=== PATIENT | male | born 1945 | race Caucasian/White ===

== ENCOUNTER → 2018-04-26 15:58 | Outpatient (CLI) | payer SELFPAY | PROVIDERS: Family Provider Family Medicine; PCP Family Medicine; Visit Provider Otolaryngology | DX: J32.9 Chronic sinusitis, unspecified (principal) | CPT/HCPCS: 87070; 87077; 87186; 87205 ==

== ENCOUNTER → 2022-04-29 | Outpatient (CLI) | payer SELFPAY ==
--- NOTE | 2022-04-29 | IMM_PTH ---
PATIENT: MACRINA MONTANEZ LOC: [facility] U#:[id number] AGE/SX: 77/M ROOM: RE04/29/[address]: Dr. Jimbo Lawton MD : 1945 BED: DIS: 04/29/2022 SPEC #: [id number] RECD: 05/04/22 13:09 STATUS: JESSA REQ #: [id number] ASHER: 04/29/22 00:[address]: Jimbo Lawton DEPT: IMMUNOHISTOCHEMISTRY RECD BY: Dee Martinez ENTERED: 05/04/22 13:10 SP TYPE: IMMUNO OTHR DR: Dr. Maico Nino, Tissues: B - PROSTATE RIGHT C - PROSTATE RIGHT Procedures: 34BE12 (add) P40 (add) 34BE12 (initial) PHYSICIAN & INSTITUTION [place] [id number] SPECIMEN INFORMATION: Tissue Source: B - Right prostate, mid, core biopsy, C - Right prostate, base, core biopsy Clinical Info: Elevated PSA Specimen Number: [id number] B & C CPT code: 88356, 39415 x3 METHODOLOGY: Deparaffinized sections of prefer/formalin-fixed tissue or PAP/DQ stained slides are incubated with monoclonal/polyclonal antibodies/oligonucleotide probes. Localization is made via biotin free immunoperoxidase method. Appropriate controls are performed and reacted as expected. Results on target cell population are indicated in the following table: RESULTS: ANTIBODY / CLONE RESULT Block B P40 (BC28) negative 34BE12 (34BE12) negative Block C P40 (BC28) negative 34BE12 (34BE12) negative These tests were developed and their performance characteristics determined by [facility]. They may not have been cleared or approved by the U.S. Food and Drug Administration. The FDA has determined that such clearance or approval is not necessary. The above immunohistochemical/dualISH markers are ordered and reviewed by the Pathologist. INTERPRETATION: B. Right prostate, mid, core biopsy: Adenocarcinoma. C. Right prostate, base, core biopsy: Adenocarcinoma. SJ:bryant 05/05/2022
--- NOTE | 2022-04-29 08:00 | PROSBIL_PTH ---
PATIENT: MACRINA MONTANEZ LOC: [facility] U#:[id number] AGE/SX: 77/M ROOM: RE04/29/[address]: Dr. Jimbo Lawton MD : 1945 BED: DIS: 04/29/2022 SPEC #: [id number] RECD: 04/29/22 16:06 STATUS: JESSA REDianne #: [id number] ASHER: 04/29/22 08:[address]: Jimbo Lawton DEPT: SURGICAL PATHOLOGY RECD BY: Pawel Luna ENTERED: 04/30/22 09:03 SP TYPE: PROST BX JAMEY DR: Dr. Maico Nino DO Tissues: A - PROSTATE RIGHT B - PROSTATE RIGHT C - PROSTATE RIGHT D - PROSTATE LEFT E - PROSTATE LEFT F - PROSTATE LEFT Procedures: PROSTATE BX HEADER OPERATION: Prostate biopsy PRE-OP DIAGNOSIS: R97.20 TISSUE SUBMITTED: A - Right apex, B - Right mid, C - Right base, D - Left apex, E - Left mid, F - Left base MICROSCOPIC DIAGNOSIS A. Right prostate, apex, core biopsy: Focal high-grade prostatic intraepithelial neoplasia (HGPIN). B. Right prostate, mid, core biopsy: Prostatic adenocarcinoma. Howie grade: 3+3=6 Number of cores involved: 1/1 Proportion of tissue involved: ~5% Perineural invasion: present.. Greatest tumor length: 0.1 cm See comment. C. Right prostate, base, core biopsy: Prostatic adenocarcinoma. Rillito grade: 3+3=6 Number of cores involved: 1/1 Proportion of tissue involved: ~10% Perineural invasion: Present. Greatest tumor length: ~0.2 cm Chronic inflammation. See comment. D. Left prostate, apex, core biopsy: Prostatic tissue, negative for malignancy. E. Left prostate, mid, core biopsy: Prostatic adenocarcinoma. Rillito grade: 3+4=7 Number of cores involved: 1/1 Proportion of tissue involved: ~50% Perineural invasion: Present. Greatest tumor length: 0.6 cm Chronic inflammation. F. Left prostate, base, core biopsy: Prostatic adenocarcinoma. Howie grade: 3+3=6 Number of cores involved: 1/1 Proportion of tissue involved: 75% Perineural invasion: Present. Greatest tumor length: 1 cm, discontinuous SJ:bryant 05/04/2022 COMMENT B & C. Immunohistochemistry ([id number]) supports the above diagnosis. Case has been reviewed in consultation with Dr. Monroe who concurs with the above diagnosis. IDC:AM MICROSCOPIC DESCRIPTION Slides are reviewed. GROSS DESCRIPTION A - Received is one container designated prostate, right apex. The specimen consists of one elongated fragment of light carrillo-white soft tissue measuring 1 cm in length and 0.1 cm in diameter. The specimen is totally submitted in one cassette. B - Received is one container designated prostate, right mid. The specimen consists of one elongated fragment of light carrillo-white soft tissue measuring 1.4 cm in length and 0.1 cm in diameter. The specimen is totally submitted in one cassette. C - Received is one container designated prostate, right base. The specimen consists of one elongated fragment of light carrillo-white soft tissue measuring 1 cm in length and 0.1 cm in diameter. The specimen is totally submitted in one cassette. D - Received is one container designated prostate, left apex. The specimen consists of one elongated fragment of light carrillo-white soft tissue measuring 1 cm in length and 0.1 cm in diameter. The specimen is totally submitted in one cassette. E - Received is one container designated prostate, left mid. The specimen consists of one elongated fragment of light carrillo-white soft tissue measuring 1.5 cm in length and 0.1 cm in diameter. The specimen is totally submitted in one cassette. F - Received is one container designated prostate, left base. The specimen consists of one elongated fragment of light carrillo-white soft tissue measuring 1.3 cm in length and 0.1 cm in diameter. The specimen is totally submitted in one cassette. / SJ:rg 04/30/2022 TC:0 [facility]: [id number]
== END | disposition home or self-care (01) ==
PROVIDERS: PCP Family Medicine; Visit Provider Urology
DX: R97.20 Elevated prostate specific antigen [PSA] (principal)
CPT/HCPCS: 88305; 88341; 88342; G0416

== ENCOUNTER → 2022-05-19 | Outpatient (CLI) | payer SELFPAY ==
--- NOTE | 2022-05-19 15:45 | PET_ITS ---
PROCEDURE: WHOLE BODY PET/CT (PMSA) SCAN, SKULL VERTEX TO MID THIGH REASON FOR EXAM: Adenocarcinoma of the prostate gland, initial staging COMPARISON EXAMINATION: None. TECHNIQUE: Following the intravenous administration of 9.82 mCi of F-18 pylarify, multiplanar imaging acquisitions of the neck, chest, abdomen/pelvis to the mid thigh, obtained at 1 hour post radiopharmaceutical administration. Interpretation is with co-registeration of similar anatomic distribution of CT. Findings: Normal and physiologic distribution of radioisotope identified in the expected intensity of the hepatic and splenic parenchyma, urinary tract and gastrointestinal structures. There is gross anatomic distribution of the intracranial contents. Physiologic activity of the salivary glands INDEX LESION SIZE SUV INTERPRETATION: 1. 1.2 cm focal isotope activity of the posterior prostate gland with elevated SUV (11.5). CT portion of the exam: The lungs are normal. There is no demonstrated pleural abnormality. Normal heart and pericardium. There are calcifications of the coronary arteries. Normal mediastinum. Normal hilar regions. Normal unenhanced pulmonary arteries. There is atherosclerotic calcification of the aortic arch with tortuosity and elongation of the aortic arch and descending thoracic aorta. Normal liver. Normal gallbladder and extrahepatic biliary system. Normal spleen. Normal pancreas. Normal bilateral adrenal glands. Right renal cysts. No hydronephrosis. No urinary tract calcifications. Normal visualized stomach. Normal small intestine. Normal colon. The appendix is visualized and appears normal. There is diffuse atherosclerotic calcification of the abdominal aorta with elongation and tortuosity, but without a demonstrated aneurysm. Normal inferior vena cava. Normal urinary bladder. Bilateral fat-containing inguinal hernias. No lytic or sclerotic bone lesions. Degenerative changes of the spine. PET/PET/CT Tumor Base -Thigh Init IMPRESSION: 1. ABNORMAL EXAMINATION. Focal activity of the posterior prostate gland compatible with prostate neoplasm. No demonstrated metastasis. 2. Chronic changes, as detailed above. Electronically Signed: Nabeel Bosch MD ([place]) at 12:44 EDT ,
== END | disposition home or self-care (01) ==
PROVIDERS: PCP Family Medicine; Referring Provider Urology; Visit Provider Urology
DX: C61 Malignant neoplasm of prostate (principal)
CPT/HCPCS: 78815; A9595

== ENCOUNTER 2022-08-27 09:44 | Day surgery (SDC) | payer SELFPAY ==
[2022-08-27 10:23] VITALS: BP 148/89; PULSE 70; RESP 16; TEMP 36.6; O2SAT 94; BMI 27.1
[2022-08-27] MEDS: Cefazolin 2 GM in 0.9% Normal Saline 100 ML IV (12:20)
--- NOTE | 2022-08-27 12:24 | PCM.HP.STD ---
HPI - General HPI Narrative MACRINA MONTANEZ, is a 77 M who presents for placement of gold markers and spacer organ at risk gel matrix he has prostate cancer and undergoing radiation therapy. [facility] Medical History Abnormal pathology report from prostate needle biopsy Abnormal TRUS (transrectal ultrasound), prostate Arthritis BPH (benign prostatic hyperplasia) Bronchitis High cholesterol Malignant neoplasm prostate Migraine Nocturia Non-smoker PSA elevation Urinary calculus Wears glasses Home Medications cholecalciferol (vitamin D3) 125 mcg (5,000 unit) capsule 125 mcg PO DAILY 06/01/22 [History Last Taken Unknown] coenzyme Q10 30 mg capsule (Co Q-10) 30 mg PO DAILY 06/01/22 [History Last Taken Unknown] red yeast rice 600 mg capsule 600 mg PO DAILY 06/01/22 [History Last Taken Unknown] zinc acetate 50 mg (zinc) capsule (Galzin) 50 mg PO DAILY 06/08/22 [History Last Taken Unknown] saw palm 160 mg-vit E 100 unit-selen 100 fgc-qqwu-mbcvzm-pygeum tablet ([employer]) 1 tab PO DAILY 08/19/22 [History Last Taken Unknown] ciprofloxacin HCl 500 mg tablet (Cipro) 500 mg PO BID #10 tabs 08/27/22 [Rx Last Taken Unknown] Allergy/AdvReac Type Severity Reaction Status Date / Time No Known Allergies Allergy Verified 08/27/22 10:22 Family History (Updated 06/08/22 @ 15:07 by Jenniffer Cintron) Brother Heart disease Cancer prostate Sister Breast cancer Mother Heart disease Surgical History Hx of foot surgery Social History (Updated 06/01/22 @ 11:28 by Jenniffer Cintron) Smoking Status: Never smoker alcohol intake: never substance use type: does not use caffeine: Yes (3) Vital Signs Vital Signs Vital Signs: 08/27/22 10:23 08/27/22 10:23 Temperature 97.9 F Temperature Source Temporal Pulse Rate 70 Respiratory Rate 16 Respiratory Pattern Normal Blood Pressure 148/89 H Blood Pressure Mean 108 Blood Pressure Source Monitor Blood Pressure Position Right Lateral Blood Pressure Location Right Arm Pulse Ox 94 Oxygen Delivery Method Room Air Weight Weight: 78.4 kg Body Mass Index (BMI) 27.1
--- NOTE | 2022-08-27 12:25 | DCINST_ITS ---
Discharge Instructions Diet Discharge Diet: No restrictions, Light diet - advance as tolerated and Soft diet Dressing / Incision Call your doctor if your incision/area has: Continuous Slow Oozing Follow Up Care Please Follow Up With: Jimbo Lawton MD When: Follow-up in September for your next hormone deprivation shot Test Results: Test results from this visit will be discussed in further detail at your follow- up appointment, if applicable. Discharge Plan Admission Primary Reason for Your Visit: placement of gold markers and spacer gel Attending Provider: Jimbo Lawton Primary Care Provider: Tal Bear Discharge Orders/Prescriptions Prescriptions: New ciprofloxacin HCl [Cipro] 500 mg tablet 500 mg PO BID Qty: 10 0RF Continued Galzin 50 mg (zinc) capsule 50 mg PO DAILY coenzyme Q10 [Co Q-10] 30 mg capsule 30 mg PO DAILY red yeast rice 600 mg capsule 600 mg PO DAILY Rx Instructions: give with meal/snack cholecalciferol (vitamin D3) 125 mcg (5,000 unit) capsule 125 mcg PO DAILY Prostate Health 160-100-100 mg-unit-mcg Tablet 1 tab PO DAILY Referrals / Follow Up: Tal Bear DO [Primary Care Provider] - Disposition Disposition (needs filled in before D/C Order can be placed): Home, Self Care
--- NOTE | 2022-08-27 12:26 | OP.PCM_ITS ---
Report of Operation Date of Procedure: 08/27/22 Pre-Operative Diagnosis: Prostate cancer Post-Operative Diagnosis: Same Surgery/Procedure Performed:: Placement of gold markers and spacer at risk gel matrix Description of Surgical Findings:: In the preoperative area I reviewed with the patient how the procedure is done we talked about the risk of the procedure including the risk of infection, bleeding, migration of the spacer gel, the patient is planning to have radiation to the prostate he understands that the spacer gel has demonstrated benefit in reducing the risk of toxicity from the ration radiation to the rectum but there is no guarantees that this spacer gel will prevent any serious complications or toxicity to the rectum or bowels. After reviewing this with the patient and his family organ to proceed with placement of a spacer gel matrix. The penis and testicles were prepped and draped in usual sterile fashion, ultrasound probe was placed into the rectum and biplanar ultrasound was performed on the prostate. Identified the base mid and apex of the prostate identified the transition zone prostate. Then using a needle the first forensic anthropologist was placed into the right base of the prostate, the second forensic anthropologist was placed in the left base of the prostate, and the third core marker was placed in the right apex of the prostate after all 3 markers were placed the placement of the markers were confirmed by ultrasonography. The genitals and perineum were prepped and draped in usual sterile fashion. I then introduced a biplanar ultrasound probe into the rectum and performed ultrasonography and identified the Denonvilliers' fascia the prostate mid base and apex and seminal vesicles. The spacer gel mix was then prepared on the back table per manufactures instruction. Under ultrasound guidance in the midline perineum a bevel needle down we advanced through the perineum below the prostate into the space of Denonvilliers' fascia. This space which could be identified by ultrasound with a bright white layer between the prostate and the rectum. I then injected a puff of normal saline to identify the space further. After I confirmed that the needle was in the correct space in the mid prostate and the s pace of Denonvilliers' fascia between the rectum and the prostate. Then over the course of 15 seconds the gel matrix was injected slowly there was nice separation between the prostate and the rectum at the gel matrix was injected. The position of the gel matrix was confirmed by ultrasound. Then the injection needle was removed intact. Patient's perineum was cleaned patient was taken out of stirrups and then taken back to the PACU in good condition. Surgeon: Jimbo Lawton Type of Anesthesia: General Admit VTE Documentation VTE Present on Admission: No VTE Mechan Device Prophylaxis: SCD's VTE Pharm Prophylaxis ordered?: No
[2022-08-27 12:49] VITALS: BP 143/86; BP 148/89; PULSE 86; RESP 17; TEMP 36.3; O2SAT 94
[2022-08-27 13:15] VITALS: BP 143/91; BP 148/89; PULSE 70; RESP 15; O2SAT 95
[2022-08-27 13:27] VITALS: BP 148/89; BP 151/92; PULSE 73; RESP 16; TEMP 36.3; O2SAT 96
[2022-08-27 13:55] VITALS: BP 148/89
== END 2022-08-27 14:26 | disposition home or self-care (01) ==
LOC: SDC 09:51 → AC 09:52
PROVIDERS: PCP Family Medicine; Referring Provider Urology; Visit Provider Urology
PROC: (CPT 55874; principal; 2022-08-27 11:45)
DX: C61 Malignant neoplasm of prostate (principal); R97.20 Elevated prostate specific antigen [PSA]
CPT/HCPCS: 55876; 55874; 00902; J7120

== ENCOUNTER → 2022-09-02 | Outpatient (CLI) | payer SELFPAY ==
--- NOTE | 2022-09-02 10:46 | MRI_ITS ---
STUDY: MR PELVIS WITH T WITHOUT CONTRAST REASON FOR EXAM: Male, 77 years old. s/p spaceoar and fiducials, planning for XRT -- please eval for disease extent TECHNIQUE: Standardized fat and water weighted pulse sequences were obtained in all 3 orthogonal planes, pre-and post contrast administration. 15 ML IV CLARISCAN was administered for the contrast portion of the examination. COMPARISON: None. FINDINGS: Normal urinary bladder. Normal visualized small intestine. Normal visualized colon. Bilateral fat-containing inguinal hernias. There is no pelvic fluid. There is no pelvic mass lesion or lymphadenopathy. Normal visualized pelvic arteries. No bone marrow edema. Normal abdominal wall. There are focal areas of signal dropout within the prostate gland correlating to fiducial markers/implants, as evident on CT 09/02/2022. On T1 imaging, there is high signal intensity within the peripheral zone and central left transitional zone, likely representing blood products, perhaps from recent procedure/biopsy. MRI/Pelvis W/WO Contrast IMPRESSION: 1. No pelvic or periprostatic adenopathy/mass. 2. Postprocedural changes of the prostate gland. Electronically Signed: Nabeel Bosch (Brooks), at 15:34 EDT ,
--- NOTE | 2022-09-02 11:57 | RAD_ITS ---
STUDY: X-RAY - ORBITS REASON FOR EXAM: Male, 77 years old. Evaluation prior to MRI study. TECHNIQUE: 2 view(s) of the orbits were obtained. COMPARISON: None. FINDINGS: Normal bilateral orbits without a metallic orbital foreign body. Normal visualized facial bones. Normal paranasal sinuses. The soft tissue structures are unremarkable. RAD/Orbits for Foreign Body IMPRESSION: No demonstrated metallic orbital foreign body. Patient is cleared for an MRI examination. Electronically Signed: Bhargav Tejada, at 12:41 EDT ,
[2022-09-02 12:31] LABS: CREATININE FINGERSTICK < 0.9 mg/dL (0.70-1.30); EGFR FINGERSTICK > 60.0000 mL/min (>60)
== END | disposition home or self-care (01) ==
LOC: MRI 10:46
PROVIDERS: PCP Family Medicine; Visit Provider Student in an Organized Health Care Education/Training Program
DX: C61 Malignant neoplasm of prostate (principal)
CPT/HCPCS: 70030; 72197; A9575

== ENCOUNTER 2022-09-28 14:32 | Emergency (ER) | payer OTHER, SELFPAY ==
[2022-09-28] VITALS (8 sets, daily range): BP systolic 98–121; BP diastolic 70–89; PULSE 72–147; RESP 12–21; TEMP 35.6; O2SAT 96–98; BMI 27.7
--- NOTE | 2022-09-28 14:35 | NURSING ---
NO OLD EKGS
--- NOTE | 2022-09-28 14:56 | ED.VIS.CHEST ---
HPI History of Present Illness Chief Complaint: Chest Pain Informant: patient Narrative Narrative: Patient is a 77-year-old male with history of prostate cancer (currently on radiation therapy) presenting with chest pain and palpitations. He states it started around noon today. Patient is 10th radiation session this morning and states he felt fine up until around noon. He then felt severe chest pain and he felt like his heart was throbbing. He went and tried to lay down and felt like some of his symptoms calm down. He then had a sensation of about every fourth heartbeat he would get discomfort in his neck. That has resolved. Patient currently denies any significant cardiac symptoms but still feels a little off. He did take an Aleve prior to arrival. Denies any swelling of his legs. Denies a history of DVT or PE. Denies a history of diabetes or hypertension. No other complaints at this time. Has never had a thing like this before. Denies any history of atrial fibrillation. [facility] Medical History Abnormal pathology report from prostate needle biopsy Abnormal TRUS (transrectal ultrasound), prostate Arthritis BPH (benign prostatic hyperplasia) Bronchitis High cholesterol Malignant neoplasm prostate Migraine Nocturia Non-smoker PSA elevation Urinary calculus Wears glasses Home Medications cholecalciferol (vitamin D3) 125 mcg (5,000 unit) capsule 125 mcg PO DAILY supplement 06/01/22 [History Last Taken 09/28/22] coenzyme Q10 30 mg capsule (Co Q-10) 30 mg PO DAILY supplement 06/01/22 [History Last Taken 09/26/22] red yeast rice 600 mg capsule 600 mg PO DAILY supplement 06/01/22 [History Last Taken 09/27/22] zinc acetate 50 mg (zinc) capsule (Galzin) 50 mg PO DAILY supplement 06/08/22 [History Last Taken 09/28/22] saw palm 160 mg-vit E 100 unit-selen 100 [id number]-jmnifz-pygeum tablet (Prostate 2CRisk) 1 tab PO 1200 supplement 08/19/22 [History Last Taken 09/27/22] apixaban 5 mg tablet (Eliquis) 5 mg PO BID #60 tabs 09/28/22 [Rx Last Taken Unknown] diltiazem HCl 120 mg capsule,extended release 24 hr 120 mg PO DAILY #30 caps 09/28/22 [Rx Last Taken Unknown] Allergy/AdvReac Type Severity Reaction Status Date / Time No Known Allergies Allergy Verified 09/28/22 14:36 Family History Brother Heart disease Cancer prostate Sister Breast cancer Mother Heart disease Surgical History Hx of foot surgery Social History Smoking Status: Never smoker alcohol intake: never substance use type: does not use caffeine: Yes (3) ROS ROS ED Constitutional Constitutional ED: Denies chills or fever(s) Eyes Eyes: Denies blurry vision ENT ENT ED: Denies ear pain or sore throat Cardiovascular Cardiovascular: Reports as per HPI, chest pain and palpitations Respiratory/Chest Respiratory/Chest: Denies cough or dyspnea Gastrointestinal Gastrointestinal: Denies abdominal pain, nausea or vomiting Genitourinary Genitourinary ED: Denies dysuria or hematuria Musculoskeletal Musculoskeletal: Denies arthralgias or myalgias Integumentary Denies rash Neurologic Neurologic: Denies headache(s) or weakness Psychiatric Psychiatric: Denies anxiety Hematologic/Lymphatic Hematologic/Lymphatic: Denies easy bleeding or easy bruising EXAM Physical Exam Const Vital Signs: 09/28/22 14:33 09/28/22 14:40 09/28/22 15:15 Temperature 96.0 F L Temperature Source Temporal Pulse Rate 147 H 147 H Pulse Rate [Lying] Pulse Rate [Sitting (for 1 minute prior to obtaining)] Pulse Rate [Standing (for 1 minute prior to obtaining)] Respiratory Rate 21 H Respiratory Effort Normal Respiratory Pattern Normal Blood Pressure 107/89 H Blood Pressure [Lying] Blood Pressure [Sitting (for 1 minute prior to obtaining)] Blood Pressure [Standing (for 1 minute prior to obtaining)] Blood Pressure Mean 95 Blood Pressure Mean [Lying] Blood Pressure Mean [Sitting (for 1 minute prior to obtaining)] Blood Pressure Mean [Standing (for 1 minute prior to obtaining)] Pulse Ox 96 Oxygen Delivery Method Room Air 09/28/22 16:00 09/28/22 17:00 09/28/22 17:56 Temperature Temperature Source Pulse Rate 99 101 H Pulse Rate [Lying] 98 Pulse Rate [Sitting (for 1 minute prior to obtaining)] 104 H Pulse Rate [Standing (for 1 minute prior to obtaining)] 146 H Respiratory Rate 16 16 Respiratory Effort Respiratory Pattern Blood Pressure 111/77 105/70 Blood Pressure [Lying] 111/80 Blood Pressure [Sitting (for 1 minute prior to obtaining)] 121/74 H Blood Pressure [Standing (for 1 minute prior to obtaining)] 98/84 H Blood Pressure Mean 88 81 Blood Pressure Mean [Lying] 90 Blood Pressure Mean [Sitting (for 1 minute prior to obtaining)] 89 Blood Pressure Mean [Standing (for 1 minute prior to obtaining)] 88 Pulse Ox 98 97 Oxygen Delivery Method Room Air Room Air 09/28/22 18:00 09/28/22 19:04 Temperature Temperature Source Pulse Rate 112 H 81 Pulse Rate [Lying] Pulse Rate [Sitting (for 1 minute prior to obtaining)] Pulse Rate [Standing (for 1 minute prior to obtaining)] Respiratory Rate 12 16 Respiratory Effort Respiratory Pattern Blood Pressure 112/78 120/82 H Blood Pressure [Lying] Blood Pressure [Sitting (for 1 minute prior to obtaining)] Blood Pressure [Standing (for 1 minute prior to obtaining)] Blood Pressure Mean 89 94 Blood Pressure Mean [Lying] Blood Pressure Mean [Sitting (for 1 minute prior to obtaining)] Blood Pressure Mean [Standing (for 1 minute prior to obtaining)] Pulse Ox 97 96 Oxygen Delivery Method Room Air Positive well nourished and well developed General Appearance ED: well developed and NAD HEENT Reports moist mucous membranes normocephalic and atraumatic Eyes PERRL and EOMs intact bilaterally Neck supple and no JVD Chest Wall inspection of chest normal and palpation of chest normal Resp normal respiratory effort and clear to auscultation bilaterally Cardio no murmurs; Negative for regular rate or regular rhythm Rate: tachycardic Rhythm: abnormal rhythm irregularly irregular Peripheral Pulses: pulses 2+ throughout GI normal to inspection, nondistended, normoactive bowel sounds Back/Spine no CVA tenderness Extremity normal to inspection General Extremety ED: Negative for edema General Extremity: Negative for edema Neuro oriented x3 and CN's II-XII intact bilaterally Sensorium / Orientation: awake and alert Psych mental status grossly normal Skin no rashes or lesions noted MDM MDM MDM Narrative Medical decision making narrative: Patient evaluated for sudden onset of chest pain and discomfort. On upon arrival patient has soft but normal blood pressures and is in atrial fibrillation with RVR. He actually states he is feeling better. He is given 10 mg of IV diltiazem with improvement of his rate. He is given 30 mg of oral diltiazem. Given his history of cancer I did obtain a CTA to rule out pulmonary emboli as a cause of his A. fib. In addition TSH and troponins are normal. High sensitive troponin checked x2 and went from 12 to 37. I suspect this is more strain related to his right. Repeat EKG is completely normal. He is asymptomatic and spontaneously converts back to normal sinus rhythm. Spoke with cardiology on-call who is comfortable starting him on Eliquis and 120 mg daily Cardizem. Patient's [id number] 2 score is 2. Patient is agreeable this plan of care. Patient will need outpatient cardiac work-up including echocardiogram. He is aware of this. Is found to have some coronary artery disease on CT and is informed of this. Patient is given strict return precautions. Patient counseled on the risk of bleeding associated with anticoagulation. He is counseled to not use any NSAIDs. Patient discharged home in stable condition. Patient and family agreeable with plan of care. Lab Data Labs: Laboratory Results - last 24 hr 09/28/22 09/28/22 09/28/22 14:45 14:45 14:45 WBC 4.4 RBC 4.79 Hgb 14.7 Hct 45.2 MCV 94.4 H MCH 30.7 MCHC 32.5 RDW Std Deviation 47.1 H RDW Coeff of Koko 13.7 Plt Count 122 L MPV 10.3 Immature Gran % (Auto) 0.200 Neut % (Auto) 66.7 Lymph % (Auto) 18.2 L Dodge % (Auto) 11.3 H Eos % (Auto) 3.4 Baso % (Auto) 0.2 Absolute Neuts (auto) 3.0 Absolute Lymphs (auto) 0.81 L Nucleated RBC % 0 Sodium Cancelled Potassium Cancelled Chloride Cancelled Carbon Dioxide Cancelled Anion Gap Cancelled BUN Cancelled Creatinine Cancelled Estim Creat Clear Calc Cancelled Est GFR (MDRD) Af Amer Cancelled Est GFR (MDRD) Non-Af Cancelled BUN/Creatinine Ratio Cancelled Glucose Cancelled Calcium Cancelled Total Bilirubin Cancelled AST Cancelled ALT Cancelled Alkaline Phosphatase Cancelled Troponin I High Sens Cancelled B-Natriuretic Peptide 43.3 Total Protein Cancelled Albumin Cancelled Globulin Cancelled Albumin/Globulin Ratio Cancelled TSH Cancelled Urine Color Urine Clarity Urine pH Ur Specific [place] Urine Protein Urine Glucose (UA) Urine Ketones Urine Occult Blood Urine Nitrite Urine Bilirubin Urine Urobilinogen Ur Leukocyte Esterase Urine RBC Urine WBC Ur Squamous Epith Cells Urine Bacteria Urine Mucus 09/28/22 09/28/22 09/28/22 15:44 15:45 17:47 WBC RBC Hgb Hct MCV MCH MCHC RDW Std Deviation RDW Coeff of Koko Plt Count MPV Immature Gran % (Auto) Neut % (Auto) Lymph % (Auto) Dodge % (Auto) Eos % (Auto) Baso % (Auto) Absolute Neuts (auto) Absolute Lymphs (auto) Nucleated RBC % Sodium 141 Potassium 3.9 Chloride 107 Carbon Dioxide 28.0 Anion Gap 6 BUN 20 H Creatinine 1.01 Estim Creat Clear Calc 59.08 Est GFR (MDRD) Af Amer 92 Est GFR (MDRD) Non-Af 76 BUN/Creatinine Ratio 19.8 Glucose 133 H Calcium 8.7 Total Bilirubin 0.40 AST 43 H ALT 88 H Alkaline Phosphatase 107 Troponin I High Sens 12 37 B-Natriuretic Peptide Total Protein 7.1 Albumin 3.4 Globulin 3.7 Albumin/Globulin Ratio 0.9 TSH 1.83 Urine Color Yellow Urine Clarity Clear Urine pH 6.5 Ur Specific [place] 1.010 Urine Protein Negative Urine Glucose (UA) Normal Urine Ketones Negative Urine Occult Blood 10 H Urine Nitrite Negative Urine Bilirubin Negative Urine Urobilinogen Normal Ur Leukocyte Esterase Negative Urine RBC 0 SEEN Urine WBC 0 SEEN Ur Squamous Epith Cells 0 SEEN Urine Bacteria 0 SEEN Urine Mucus 0 SEEN Radiography Diagnostic Testing: Clinical Impression(s) from Imaging Studies Chest X-Ray 09/28/22 15:18 IMPRESSION: Findings suggestive of linear bibasilar atelectasis. Electronically Signed: Justus Gonsalez MD at 15:39 EST , Chest CTA 09/28/22 16:03 IMPRESSION: ASHD and Minor subsegmental atelectasis in both lower and left upper lobes.. No evidence for pulmonary embolus Electronically Signed: Vineet Klein MD at 16:57 EST Reading Location ID and State: [address] [place] [address] , Service support , Rhythm Strip Rhythm Strip: A-fib Rate: 150 Ectopy: None EKG Initial EKG: Attestation: I personally reviewed and interpreted this EKG as follows: Interpretation: Atrial Fibrillation Comments: Atrial fibrillation with rapid ventricular response at a rate of 150 bpm Normal axis Normal intervals Normal ST segments Follow-up EKG: Attestation: I personally reviewed and interpreted this EKG as follows: Comments: Normal sinus rhythm at a rate of 77 bpm Normal axis Normal intervals Normal ST segments Critical Care Time Critical Care Time: Yes Critical care time (excluding procedures): 30-74 minutes (40), Discussing w/Patient &/or Family/Regulatory Compliance Manager and Discussing w/Consultants Discharge Plan Triage Chief Complaint: Chest Pain ED Provider: Sanam Morales Dx/Rx/DC Orders Clinical Impression: Atrial fibrillation with rapid ventricular response, Chest pain, Heart palpitations Instructions: Apixaban Oral tablet, ED AFIB Prescriptions: New Eliquis 5 mg tablet 5 mg PO BID Qty: 60 0RF diltiazem HCl 120 mg capsule,extended release 24hr 120 mg PO DAILY Qty: 30 0RF No Action Galzin 50 mg (zinc) capsule 50 mg PO DAILY coenzyme Q10 [Co Q-10] 30 mg capsule 30 mg PO DAILY red yeast rice 600 mg capsule 600 mg PO DAILY Rx Instructions: give with meal/snack cholecalciferol (vitamin D3) 125 mcg (5,000 unit) capsule 125 mcg PO DAILY Prostate Health 160-100-100 mg-unit-mcg Tablet 1 tab PO 1200 Primary Care Provider: Tal Bear Referrals: Tal Bear DO [Primary Care Provider] - Malick Diaz MD [Med Staff - Active Staff] - As soon as possible
[2022-09-28] MEDS: 0.9% Normal Saline 1,000 ML 1000 ML IV (15:11)
[2022-09-28] MEDS: dilTIAZem 25 MG/5 ML Vial 10 MG IV BOLUS (15:12)
--- NOTE | 2022-09-28 15:18 | RAD_ITS ---
STUDY: X-RAY CHEST REASON FOR EXAM: Male, 77 years old. Chest pain TECHNIQUE: Single AP portable view of the chest. COMPARISON: None. FINDINGS: EKG electrodes are seen. Increased linear markings are seen at the lung bases slightly more prominent at the right lung base suggestive of bibasilar linear atelectasis. There is no demonstrated pleural abnormality. Normal size heart. Normal mediastinum and leia. Normal visualized pulmonary arteries. There is atherosclerotic tortuosity of the aortic arch and descending thoracic aorta. There are diffuse degenerative changes of the visualized thoracic spine. Normal visualized ribs, clavicles, and shoulders. There is no demonstrated abnormality of the visualized soft tissue structures of the upper abdomen. RAD/Chest 1 View (Portable) IMPRESSION: Findings suggestive of linear bibasilar atelectasis. Electronically Signed: Justus Gonsalez MD at 15:39 EST ,
[2022-09-28 15:20] LABS: Absolute Lymphocyte Count 0.81 X10^3/uL (0.83-4.51); Basophil# 0.01 X10^3/uL; Basophil% 0.2 % (0-1); Eosinophil# 0.15 X10^3/uL; Eosinophils% 3.4 % (0-5); Hematocrit 45.2 % (40-54); Hemoglobin 14.7 g/dL (13.0-16.5); Lymphocyte # 0.81 X10^3/ul (0.83-4.51); Lymphocyte % 18.2 % (19-41); Mean Corp Hgb Conc 32.5 g/dL (32-36); Mean Corpuscular Hgb 30.7 pg (27.0-32.0); Mean Corpuscular Volume 94.4 fL (80-94); Mean Platelet Vol. 10.3 fl (6.2-12.0); Monocyte% 11.3 % (0-10); NRBC Flagged by Analyzer 0 % (0-5); Neutrophil # 2.96 X10^3/uL (2.7-7.7); Neutrophil % 66.7 % (47-70); Platelet Count 122 K/mm3 (150-450); RBC Distribution Width CV 13.7 % (11.6-14.6); RBC Distribution Width SD 47.1 fl (35.1-43.9); Red Blood Count 4.79 M/mm3 (4.6-6.2); White Blood Count 4.4 K/mm3 (4.4-11.0)
--- NOTE | 2022-09-28 15:35 | NURSING ---
GREEN TOP HEMOLIZED. NEEDS REDRAWN
[2022-09-28 15:53] LABS: Bacteria 0 SEEN /hpf (None Seen); Mucous, Urine 0 SEEN /hpf (<or=2+); Red Blood Cells-Urine 0 SEEN /hpf (0-5); Squamous Epithelial Cells - UA 0 SEEN /hpf (0-5); White Blood Cells 0 SEEN /hpf (0-5)
[2022-09-28 16:03] LABS: BNP,B-Type NATRIURETIC PEPTIDE 43.3 pg/mL (0-100)
--- NOTE | 2022-09-28 16:03 | CT_ITS ---
STUDY: CTA CHEST REASON FOR EXAM: Male, 77 years old. new onset A fib, high risk for PE RADIATION DOSAGE (If Supplied By Facility): CTDIvol = ( 16.04 ) mGy, DLP = ( 491.96 ) mGycm TECHNIQUE: The examination was performed with the intravenous administration of IV 75mL Isovue-370. Post-processing of the angiographic images was performed, with multiplanar reformation and 3D reconstruction. Individualized dose optimization techniques were used for this CT. COMPARISON: None. FINDINGS: Normal enhancement of the main pulmonary artery and right and left pulmonary arteries. Normal enhancement of the bilateral peripheral pulmonary arteries. There is no demonstrated pulmonary embolism. Mild atherosclerotic changes of the aorta without evidence for aneurysm.. There is no demonstrated aortic dissection. Heart size is normal. There are tiny foci of coronary artery calcification. Normal mediastinum. Normal hilar regions. Normal visualized trachea and bronchi. The lungs are well expanded. Mild subsegmental atelectasis in both lower and upper lobes Normal pleura. Normal chest wall structures. Dorsal spine demonstrates degenerative change Normal visualized upper abdomen. CT/CTA Chest W/WO Contrast IMPRESSION: ASHD and Minor subsegmental atelectasis in both lower and left upper lobes.. No evidence for pulmonary embolus Electronically Signed: Vineet Klein MD at 16:57 EST ,
[2022-09-28 16:04] LABS: Color, Urine Yellow (Yellow); Glucose, Dipstick Normal (Normal); Ketone-Dipstick Negative (Negative); Leukocyte Esterase-Dipstick Negative /ul (Negative); Nitrite-Dipstick Negative (Negative); Occult Blood-Urine 10 /ul (Negative); Protein-Dipstick Negative (Negative); Urine Bilirubin Dipstick Negative (Negative); Urine Clarity Clear (Clear); Urine Urobilinogen Normal (Normal); Urine pH 6.5 (5.0 - 8.0)
[2022-09-28 16:12] LABS: ALB/GLOB Ratio 0.9 RATIO (0.9-2.4); AST(SGOT) 43 U/L (15-37); Alanine Aminotransfer ALT/SGPT 88 U/L (16-61); Albumin, Serum 3.4 g/dL (3.2-5.0); Alkaline Phosphatase 107 U/L (45-117); Anion Gap 6 (5-15); BUN 20 mg/dL (7-18); BUN/Creat Ratio 19.8 RATIO (10-20); Calcium,Total 8.7 mg/dL (8.5-10.1); Chloride 107 mmol/L (98-107); Creatinine, Serum 1.01 mg/dL (0.70-1.30); EST Glomerular Filtration Rate 76 mL/min (>60); Est Glom Filt Rate - Afr Amer 92 mL/min (>60); Estimated Creatinine Clearance 59.08 ml/min; Globulin 3.7 g/dL (2.2-4.2); Glucose 133 mg/dL (74-106); Potassium 3.9 mmol/L (3.5-5.1); Protein, Total 7.1 g/dL (6.4-8.2); Sodium Level 141 mmol/L (136-145); Thyroid Stim Hormone (TSH) 1.83 uIU/mL (0.358-3.74); Troponin-I HS (w/2H Reflex) 12 pg/mL (3.0-78.0)
[2022-09-28] MEDS: dilTIAZem 30 MG Tablet PO (16:34)
[2022-09-28 17:47] LABS: Reflex Troponin-HS? (from REC) Y
[2022-09-28 18:16] LABS: Troponin-I HS 37 pg/mL (3.0-78.0)
[2022-09-28] MEDS: APIXABAN 5 MG TABLET PO (19:44)
== END 2022-09-28 19:50 | disposition home or self-care (01) ==
PROVIDERS: Emergency Provider Emergency Medicine; PCP Family Medicine; Visit Provider Emergency Medicine
DX: I48.91 Unspecified atrial fibrillation (principal); C61 Malignant neoplasm of prostate; E78.00 Pure hypercholesterolemia, unspecified; I25.10 Atherosclerotic heart disease of native coronary artery without angina pectoris; R00.2 Palpitations; N40.0 Benign prostatic hyperplasia without lower urinary tract symptoms; R07.9 Chest pain, unspecified
CPT/HCPCS: 71045; 71275; 80053; 81001; 83880; 84443; 84484; 85025; 87428; 93005; 96361; 96374; 99285; J7030; Q9967; A4216

== ENCOUNTER → 2023-04-11 | Outpatient (CLI) | payer SELFPAY ==
[2023-04-11 11:52] LABS: PSA,Total- Diagnostic < 0.01 ng/mL (0.0-4.0)
== END | disposition home or self-care (01) ==
PROVIDERS: PCP Family Medicine; Referring Provider Urology; Visit Provider Urology
DX: C61 Malignant neoplasm of prostate (principal)
CPT/HCPCS: 36415; 84153

== ENCOUNTER → 2023-10-07 | Outpatient (CLI) | payer SELFPAY ==
[2023-10-07 12:12] LABS: Absolute Lymphocyte Count 1.12 X10^3/uL (0.83-4.51); Absolute Neutrophil Count 2.6 X10^3/uL (2.0-7.7); Basophil# 0.01 X10^3/uL; Basophil% 0.2 % (0-1); Eosinophil# 0.24 X10^3/uL; Eosinophils% 5.4 % (0-5); Hematocrit 38.7 % (40-54); Hemoglobin 12.7 g/dL (13.0-16.5); Lymphocyte # 1.12 X10^3/ul (0.83-4.51); Lymphocyte % 25.1 % (19-41); Mean Corp Hgb Conc 32.8 g/dL (32-36); Mean Corpuscular Hgb 30.2 pg (27.0-32.0); Mean Corpuscular Volume 91.9 fL (80-94); Monocyte# 0.49 X10^3/uL; NRBC Flagged by Analyzer 0 % (0-5); Neutrophil % 58.1 % (47-70); Platelet Count 166 K/mm3 (150-450); RBC Distribution Width CV 13.1 % (11.6-14.6); RBC Distribution Width SD 43.7 fl (35.1-43.9); Red Blood Count 4.21 M/mm3 (4.6-6.2); White Blood Count 4.5 K/mm3 (4.4-11.0)
[2023-10-07 12:49] LABS: Anion Gap 2 (5-15); BUN 15 mg/dL (7-18); BUN/Creat Ratio 17.3 RATIO (10-20); Calcium,Total 8.6 mg/dL (8.5-10.1); Chloride 109 mmol/L (98-107); Creatinine, Serum 0.87 mg/dL (0.70-1.30); EST Glomerular Filtration Rate 91 mL/min (>60); Est Glom Filt Rate - Afr Amer 110 mL/min (>60); Glucose 103 mg/dL (74-106); Sodium Level 140 mmol/L (136-145)
== END | disposition home or self-care (01) ==
PROVIDERS: PCP Family Medicine; Referring Provider Physician Assistant Medical; Visit Provider Physician Assistant Medical
DX: I48.0 Paroxysmal atrial fibrillation (principal); E78.2 Mixed hyperlipidemia
CPT/HCPCS: 36415; 80048; 85025